=== PATIENT | female | born 1985 | race Caucasian/White ===

== ENCOUNTER 2017-05-30 17:52 | Emergency (ER) | payer OTHER ==
[~2017-05-30] VITALS: Ht 160 cm; Wt 113.4 kg
[~2017-05-30 17:52] MED LIST: ACET500 PO; ALBU90OI INH; ALBU90OI61 INH; AMOCLA875 PO; AMOX500 PO; Augmentin 875-1 EACH PO; BCPs; BENZ100A PO; BIRTH CONTROL PO; Bactroban22 GM TOP; CEPH500 PO; CIPR500 PO; CLIN300 PO; DIPATR PO; ERYT.5TO BOTHEYES; Flagyl500 MG PO; Flonase 0.05% N16 GM; GUAI120S1 PO; HYDACE5 PO; IBUP600 PO; IBUP800 PO; IRON PILLS PO; LAVAP17G PO; MULVITMINE PO; NAPR500 PO; Naprosyn500 MG PO; Norco 5-325 Ta1 EACH PO; ONDA4 PO; ONDA4ODT MM; OXYACE5T PO; PENVK500 PO; PHENA100 PO; PHENA200 PO; PROM25 PO; Peridex480 ML SS; Pyridium200 MG PO; RXTRAM50 PO; SULF10OPSA OS; SULTRIDS PO; Sudogest30 MG PO; TOBR.3OPSO OP; TRAM50 PO; Veetids 500500 MG PO; Zofran Odt4 MG SL
[2017-05-30] MEDS ORDERED: Bactrim Ds Tab1 EACH PO (18:41)
[2017-05-30] MEDS ORDERED: Mupirocin22 GM TOP (18:41)
[2017-05-30] MEDS ORDERED: CEPH500 PO (18:41)
== END 2017-05-30 19:08 | disposition home or self-care (01) ==
LOC: ER 17:52
DX: L03.115 Cellulitis of right lower limb (principal); L97.519 Non-pressure chronic ulcer of other part of right foot with unspecified severity; D64.9 Anemia, unspecified; Z79.899 Other long term (current) drug therapy; Z79.2 Long term (current) use of antibiotics; Z98.51 Tubal ligation status; Z90.89 Acquired absence of other organs
CPT/HCPCS: 82947; 99283

== ENCOUNTER 2019-04-06 17:58 | Emergency (ER) | payer SELFPAY ==
[~2019-04-06] VITALS: Ht 160 cm; Wt 113.4 kg
[~2019-04-06 17:58] MED LIST changes: +Amoxicillin500 MG PO; +Bactrim Ds Tab1 EACH PO; +Mupirocin22 GM TOP
[2019-04-06 18:39] LABS: BASOPHILS ABSOLUTE AUTO 0.01 K/mm3 (0.00-0.23); BASOPHILS PERCENT AUTO 0 % (0-2); EOSINOPHILS ABSOLUTE AUTO 0.02 K/mm3 (0.00-0.68); EOSINOPHILS PERCENT AUTO 0 % (0-6); Hematocrit 30.5 % (33.0-51.0); Hemoglobin 8.3 g/dL (11.5-16.0); IMMATURE GRAN ABSOLUTE AUTO 0.02 K/mm3 (0.00-0.10); IMMATURE GRAN PERCENT AUTO 0 % (0-1); LYMPHOCYTES ABSOLUTE AUTO 1.26 K/mm3 (0.84-5.20); LYMPHOCYTES PERCENT AUTO 19 % (21-46); MONOCYTES ABSOLUTE AUTO 0.47 K/mm3 (0.16-1.47); MONOCYTES PERCENT AUTO 7 % (4-13); Mean Corpuscular HGB 19.9 pg (26.0-34.0); Mean Corpuscular HGB Conc 27.2 g/dL (31.5-36.5); Mean Corpuscular Volume 73 fL (80-100); Mean Platelet Volume 9.4 fL (9.1-12.4); NEUTROPHILS ABSOLUTE AUTO 4.79 K/mm3 (1.96-9.15); NEUTROPHILS PERCENT AUTO 73 % (41-73); Platelet Count 343 K/mm3 (150-400); RDW Coefficient Variation 18.7 % (11.7-14.2); RDW Standard Deviation 48.7 fL (35.1-46.3); Red Blood Cell Count 4.18 M/mm3 (3.80-5.20); White Blood Cell Count 6.57 K/mm3 (4.00-11.30)
[2019-04-06 19:02] LABS: Alanine Aminotransfer (ALT/SGP 19 U/L (12-78); Albumin, Blood 3.3 g/dL (3.4-5.0); Albumin/Globulin Ratio 0.8 (0.8-1.8); Alk Phos 99 U/L (50-136); Anion Gap 4 mmol/L (6-16); Aspartate Aminotrans (AST/SGOT 17 U/L (12-37); Bilirubin, Total 0.2 mg/dL (0.1-1.0); Blood Urea Nitrogen 13 mg/dL (8-24); Bun/Creatinine Ratio 13.9 (12.0-20.0); CO2, Blood 26 mmol/L (21-32); Calcium, Blood 8.6 mg/dL (8.5-10.1); Chloride, Blood 109 mmol/L (98-108); Creatinine, Blood 0.94 mg/dL (0.40-1.00); Globulin, Blood 4.3 g/dL (2.2-4.0); Glomerular Filtration Rate >60 (60-); Glucose, Blood 95 mg/dL (70-99); Potassium, Blood 3.6 mmol/L (3.5-5.5); Sodium, Blood 139 mmol/L (136-145); Total Protein, Blood 7.6 g/dL (6.4-8.2)
== END 2019-04-07 00:46 | disposition home or self-care (01) ==
LOC: ER 17:58
PROVIDERS: Physician Assistant
DX: D50.9 Iron deficiency anemia, unspecified (principal); R07.9 Chest pain, unspecified; Z79.899 Other long term (current) drug therapy
CPT/HCPCS: 36415; 36430; 71046; 80053; 84484; 85025; 85379; 86850; 86900; 86901; 86923; 93005; 93010; 99284-25; J7030; P9016

== ENCOUNTER 2019-05-23 13:19 | Emergency (ER) | payer SELFPAY ==
[~2019-05-23] VITALS: Ht 157.5 cm; Wt 113.4 kg
[2019-05-23 15:36] LABS: Influenza A Negative (NEGATIVE); Influenza B Positive (NEGATIVE)
[2019-05-23] MEDS ORDERED: OSEL75CA PO (15:42)
== END 2019-05-23 15:54 | disposition home or self-care (01) ==
LOC: ER 13:19
PROVIDERS: Physician Assistant
DX: J10.1 Influenza due to other identified influenza virus with other respiratory manifestations (principal); D50.9 Iron deficiency anemia, unspecified
CPT/HCPCS: 87804; 99283

== ENCOUNTER 2019-08-30 13:13 | Emergency (ER) | payer SELFPAY ==
[~2019-08-30] VITALS: Ht 160 cm; Wt 113.4 kg
[~2019-08-30 13:13] MED LIST changes: +OSEL75CA PO
== END 2019-08-30 16:30 | disposition home or self-care (01) ==
LOC: ER 13:13
DX: M77.9 Enthesopathy, unspecified (principal)
CPT/HCPCS: 73630; 96374; 99283-25

== ENCOUNTER 2020-12-24 13:44 | Emergency (ER) | payer SELFPAY ==
[~2020-12-24] VITALS: Ht 157.5 cm; Wt 136.1 kg
[2020-12-24 14:51] LABS: BASOPHILS ABSOLUTE AUTO 0.03 K/mm3 (0.00-0.23); BASOPHILS PERCENT AUTO 0 % (0-2); EOSINOPHILS ABSOLUTE AUTO 0.01 K/mm3 (0.00-0.68); EOSINOPHILS PERCENT AUTO 0 % (0-6); Hematocrit 30.2 % (33.0-51.0); Hemoglobin 8.2 g/dL (11.5-16.0); IMMATURE GRAN ABSOLUTE AUTO 0.02 K/mm3 (0.00-0.10); IMMATURE GRAN PERCENT AUTO 0 % (0-1); LYMPHOCYTES ABSOLUTE AUTO 1.47 K/mm3 (0.84-5.20); LYMPHOCYTES PERCENT AUTO 14 % (21-46); MONOCYTES ABSOLUTE AUTO 0.57 K/mm3 (0.16-1.47); MONOCYTES PERCENT AUTO 5 % (4-13); Mean Corpuscular HGB 19.4 pg (26.0-34.0); Mean Corpuscular HGB Conc 27.2 g/dL (31.5-36.5); Mean Corpuscular Volume 72 fL (80-100); Mean Platelet Volume 9.4 fL (9.1-12.4); NEUTROPHILS ABSOLUTE AUTO 8.73 K/mm3 (1.96-9.15); NEUTROPHILS PERCENT AUTO 81 % (41-73); Platelet Count 387 K/mm3 (150-400); RDW Coefficient Variation 20.5 % (11.7-14.2); Red Blood Cell Count 4.22 M/mm3 (3.80-5.20); White Blood Cell Count 10.83 K/mm3 (4.00-11.30)
[2020-12-24 15:10] LABS: Alanine Aminotransfer (ALT/SGP 27 U/L (12-78); Albumin/Globulin Ratio 0.6 (0.8-1.8); Alk Phos 137 U/L (50-136); Anion Gap 5 mmol/L (6-16); Aspartate Aminotrans (AST/SGOT 21 U/L (12-37); Bilirubin, Total 0.4 mg/dL (0.1-1.0); Blood Urea Nitrogen 12 mg/dL (8-24); Bun/Creatinine Ratio 17.3 (12.0-20.0); CO2, Blood 26 mmol/L (21-32); Calcium, Blood 8.9 mg/dL (8.5-10.1); Chloride, Blood 109 mmol/L (98-108); Globulin, Blood 4.7 g/dL (2.2-4.0); Glomerular Filtration Rate >60 (60-); Glucose, Blood 108 mg/dL (70-99); Potassium, Blood 3.9 mmol/L (3.5-5.5); Sodium, Blood 140 mmol/L (136-145); Total Protein, Blood 7.7 g/dL (6.4-8.2)
== END 2020-12-24 18:17 | disposition home or self-care (01) ==
LOC: ER 13:44
PROVIDERS: Physician Assistant
DX: R42 Dizziness and giddiness (principal); D50.9 Iron deficiency anemia, unspecified; R55 Syncope and collapse
CPT/HCPCS: 0031A; 36415; 80053; 81025; 85025; 91303; 93005; 93010; 99284-25

== ENCOUNTER 2021-05-25 09:36 | Emergency (ER) | payer SELFPAY ==
[~2021-05-25] VITALS: Ht 157.5 cm; Wt 136.1 kg
[2021-05-25 11:04] LABS: Influenza A, PCR NEGATIVE (NEGATIVE); Influenza B, PCR NEGATIVE (NEGATIVE); Resp Syncytial Virus, PCR NEGATIVE (NEGATIVE); SARS-Cov-2 (COVID-19) PCR, MMC NEGATIVE (NEGATIVE)
== END 2021-05-25 11:40 | disposition home or self-care (01) ==
LOC: ER 09:36
PROVIDERS: Emergency Medicine
DX: U07.1 COVID-19 (principal); D50.9 Iron deficiency anemia, unspecified
CPT/HCPCS: 0241U; 71045; 99285-25

== ENCOUNTER 2021-08-06 09:08 | Emergency (ER) | payer SELFPAY ==
[~2021-08-06] VITALS: Ht 157.5 cm; Wt 136.1 kg
[2021-08-06] MEDS ORDERED: Bactrim Ds Tab1 EACH PO (10:17)
[2021-08-06] MEDS ORDERED: CEPH500 PO (10:17)
== END 2021-08-06 10:24 | disposition home or self-care (01) ==
LOC: ER 09:08
DX: N61.0 Mastitis without abscess (principal)
CPT/HCPCS: 96374; 99285-25

== ENCOUNTER 2023-05-20 10:44 | Emergency (ER) | payer SELFPAY ==
[~2023-05-20] VITALS: Ht 160 cm; Wt 136.1 kg
[2023-05-20 11:34] VITALS: BP 138/96
== END 2023-05-20 11:41 | disposition home or self-care (01) ==
LOC: ER 10:44
DX: U07.1 COVID-19 (principal)
CPT/HCPCS: 99282

== ENCOUNTER 2024-04-08 14:26 | Emergency (ER) | payer SELFPAY ==
[~2024-04-08] VITALS: Ht 157.5 cm; Wt 113.4 kg
[2024-04-08 14:36] VITALS: BP 152/90
[2024-04-08] MEDS ORDERED: Ketorolac Tromethamine 15mg Vial IM ONE (15:10)
== END 2024-04-08 15:29 ==
LOC: ER 14:26
DX: M25.562 Pain in left knee (principal)
CPT/HCPCS: 73560-LT; 96372; 99283-25; J1885

== ENCOUNTER 2024-07-29 14:22 | Day surgery (SDC) | payer OTHER ==
[~2024-07-29 14:22] MED LIST changes: +Sod Ferric Gluc Complx/Sucrose 125 MG in NS 100 ML IV SCH
[2024-07-29 14:50] VITALS: BP 140/76
[2024-07-29] MEDS ORDERED: TOPI25 PO (15:35)
[2024-07-29] MEDS ORDERED: LOMAIRA8 MG PO (15:36)
== END 2024-07-29 15:59 | disposition home or self-care (01) ==
LOC: ATC 14:22
DX: D50.8 Other iron deficiency anemias (principal); E66.01 Morbid (severe) obesity due to excess calories; Z68.44 Body mass index [BMI] 60.0-69.9, adult; Z80.41 Family history of malignant neoplasm of ovary; Z79.899 Other long term (current) drug therapy
CPT/HCPCS: 96365; J2916

== ENCOUNTER 2024-08-07 00:09 | Day surgery (SDC) | payer OTHER ==
[~2024-08-07 00:09] MED LIST changes: +LOMAIRA8 MG PO; -Sod Ferric Gluc Complx/Sucrose 125 MG in NS 100 ML IV SCH; +TOPI25 PO
[2024-08-07] MEDS ORDERED: Sod Ferric Gluc Complx/Sucrose 125 MG in NS 100 ML IV SCH (01:00)
[2024-08-07 15:03] VITALS: BP 134/75
== END 2024-08-07 16:05 | disposition home or self-care (01) ==
LOC: ATC 00:09
DX: D50.9 Iron deficiency anemia, unspecified (principal); F42.2 Mixed obsessional thoughts and acts; E66.01 Morbid (severe) obesity due to excess calories; Z80.41 Family history of malignant neoplasm of ovary; Z68.44 Body mass index [BMI] 60.0-69.9, adult
CPT/HCPCS: 96365; J2916

== ENCOUNTER 2024-08-14 01:33 | Day surgery (SDC) | payer OTHER ==
[~2024-08-14 01:33] MED LIST changes: +Sod Ferric Gluc Complx/Sucrose 125 MG in NS 100 ML IV SCH
[2024-08-14 15:23] VITALS: BP 126/78
== END 2024-08-14 16:25 | disposition home or self-care (01) ==
LOC: ATC 01:33
DX: D50.8 Other iron deficiency anemias (principal); Z98.51 Tubal ligation status; Z80.41 Family history of malignant neoplasm of ovary; E11.9 Type 2 diabetes mellitus without complications; E66.01 Morbid (severe) obesity due to excess calories; Z68.44 Body mass index [BMI] 60.0-69.9, adult; Z79.899 Other long term (current) drug therapy
CPT/HCPCS: 96365; J2916

== ENCOUNTER → 2024-08-16 | Outpatient (CLI) | payer OTHER ==
[~2024-08-16] MED LIST changes: -Sod Ferric Gluc Complx/Sucrose 125 MG in NS 100 ML IV SCH
[2024-08-29 13:47] LABS: HPV HIGH RISK BY TMA Not Detected; HPV SOURCE Cervical/Vag
== END ==
LOC: LAB SHORT 11:36 → LAB 11:36
PROVIDERS: Obstetrics & Gynecology
DX: Z12.4 Encounter for screening for malignant neoplasm of cervix (principal)
CPT/HCPCS: 87624; 88142

== ENCOUNTER 2024-08-21 02:00 | Day surgery (SDC) | payer OTHER ==
[2024-08-21] MEDS ORDERED: Sod Ferric Gluc Complx/Sucrose 125 MG in NS 100 ML IV SCH (06:00)
[2024-08-21 15:13] VITALS: BP 118/72
== END 2024-08-21 15:57 | disposition home or self-care (01) ==
LOC: ATC 02:00
DX: D50.8 Other iron deficiency anemias (principal); F42.2 Mixed obsessional thoughts and acts; E66.01 Morbid (severe) obesity due to excess calories; Z98.51 Tubal ligation status; Z80.41 Family history of malignant neoplasm of ovary; Z68.44 Body mass index [BMI] 60.0-69.9, adult
CPT/HCPCS: 96365; J2916

== ENCOUNTER 2024-08-29 05:06 | Day surgery (SDC) | payer OTHER ==
[~2024-08-29 05:06] MED LIST changes: +Sod Ferric Gluc Complx/Sucrose 125 MG in NS 100 ML IV SCH
[2024-08-29 14:55] VITALS: BP 128/60
== END 2024-08-29 16:05 | disposition home or self-care (01) ==
LOC: ATC 05:06
DX: D50.8 Other iron deficiency anemias (principal); R53.83 Other fatigue; F42.2 Mixed obsessional thoughts and acts; E66.01 Morbid (severe) obesity due to excess calories; Z68.44 Body mass index [BMI] 60.0-69.9, adult; Z80.41 Family history of malignant neoplasm of ovary; Z98.51 Tubal ligation status
CPT/HCPCS: 96365; J2916

== ENCOUNTER 2024-09-05 03:56 | Day surgery (SDC) | payer OTHER ==
[2024-09-05 15:11] VITALS: BP 127/56
== END 2024-09-05 16:10 | disposition home or self-care (01) ==
LOC: ATC 03:56
DX: D50.8 Other iron deficiency anemias (principal); E66.01 Morbid (severe) obesity due to excess calories; Z68.44 Body mass index [BMI] 60.0-69.9, adult; Z79.899 Other long term (current) drug therapy
CPT/HCPCS: 96365; J2916

== ENCOUNTER 2024-11-23 01:46 | Day surgery (SDC) | payer OTHER ==
[2024-11-23 15:53] VITALS: BP 130/75
== END 2024-11-23 16:56 | disposition home or self-care (01) ==
LOC: ATC 01:46
DX: D50.8 Other iron deficiency anemias (principal); E66.01 Morbid (severe) obesity due to excess calories; Z68.44 Body mass index [BMI] 60.0-69.9, adult; Z79.899 Other long term (current) drug therapy
CPT/HCPCS: 96365; J2916

== ENCOUNTER 2024-11-30 02:57 | Day surgery (SDC) | payer OTHER ==
[2024-11-30 16:06] VITALS: BP 125/85
== END 2024-11-30 17:05 | disposition home or self-care (01) ==
LOC: ATC 02:57
DX: D50.8 Other iron deficiency anemias (principal); E66.01 Morbid (severe) obesity due to excess calories; Z68.44 Body mass index [BMI] 60.0-69.9, adult; Z98.51 Tubal ligation status
CPT/HCPCS: 96365; J2916

== ENCOUNTER 2024-12-07 04:20 | Day surgery (SDC) | payer OTHER ==
[2024-12-07 15:02] VITALS: BP 111/76
== END 2024-12-07 15:56 | disposition home or self-care (01) ==
LOC: ATC 04:20
DX: D50.0 Iron deficiency anemia secondary to blood loss (chronic) (principal); Z98.51 Tubal ligation status
CPT/HCPCS: 96365; J2916

== ENCOUNTER 2024-12-14 14:08 | Day surgery (SDC) | payer OTHER ==
[2024-12-14 15:14] VITALS: BP 125/71
== END 2024-12-14 16:20 | disposition home or self-care (01) ==
LOC: ATC 14:08
DX: D50.0 Iron deficiency anemia secondary to blood loss (chronic) (principal); R53.83 Other fatigue; F42.2 Mixed obsessional thoughts and acts; E66.01 Morbid (severe) obesity due to excess calories; Z68.44 Body mass index [BMI] 60.0-69.9, adult; Z79.899 Other long term (current) drug therapy; Z98.51 Tubal ligation status
CPT/HCPCS: 96365; J2916

== ENCOUNTER 2024-12-22 00:58 | Day surgery (SDC) | payer OTHER ==
[~2024-12-22 00:58] MED LIST changes: -Sod Ferric Gluc Complx/Sucrose 125 MG in NS 100 ML IV SCH
[2024-12-22] MEDS ORDERED: Sod Ferric Gluc Complx/Sucrose 125 MG in NS 100 ML IV SCH (01:00)
[2024-12-22 14:56] VITALS: BP 110/68
== END 2024-12-22 16:00 | disposition home or self-care (01) ==
LOC: ATC 00:58
DX: D50.0 Iron deficiency anemia secondary to blood loss (chronic) (principal); E66.01 Morbid (severe) obesity due to excess calories; Z68.44 Body mass index [BMI] 60.0-69.9, adult; Z98.51 Tubal ligation status; Z80.41 Family history of malignant neoplasm of ovary
CPT/HCPCS: 96365; J2916

== ENCOUNTER 2025-01-04 03:27 | Day surgery (SDC) | payer OTHER ==
[~2025-01-04 03:27] MED LIST changes: +Sod Ferric Gluc Complx/Sucrose 125 MG in NS 100 ML IV SCH
[2025-01-04 09:55] VITALS: BP 107/67
== END 2025-01-04 11:01 | disposition home or self-care (01) ==
LOC: ATC 03:27
DX: D50.0 Iron deficiency anemia secondary to blood loss (chronic) (principal); N92.0 Excessive and frequent menstruation with regular cycle; E66.813 Obesity, class 3; Z68.42 Body mass index [BMI] 45.0-49.9, adult
CPT/HCPCS: 96365; J2916

== ENCOUNTER 2025-01-08 15:47 | Day surgery (SDC) | payer OTHER ==
[2025-01-08 15:51] VITALS: BP 115/79
== END 2025-01-08 16:52 | disposition home or self-care (01) ==
LOC: ATC 15:47
DX: D50.0 Iron deficiency anemia secondary to blood loss (chronic) (principal); N92.0 Excessive and frequent menstruation with regular cycle; E66.813 Obesity, class 3; Z68.42 Body mass index [BMI] 45.0-49.9, adult
CPT/HCPCS: 96365; J2916

== ENCOUNTER 2025-01-12 03:39 | Day surgery (SDC) | payer OTHER ==
[2025-01-12 17:04] VITALS: BP 105/67
== END 2025-01-12 18:02 | disposition short-term general hospital (02) ==
LOC: ATC 03:39
DX: D50.0 Iron deficiency anemia secondary to blood loss (chronic) (principal); N92.0 Excessive and frequent menstruation with regular cycle; E66.813 Obesity, class 3; Z68.42 Body mass index [BMI] 45.0-49.9, adult
CPT/HCPCS: 96365; J2916

== ENCOUNTER 2025-01-16 02:13 | Day surgery (SDC) | payer OTHER ==
[2025-01-16 16:11] VITALS: BP 115/71
== END 2025-01-16 17:10 | disposition home or self-care (01) ==
LOC: ATC 02:13
DX: D50.0 Iron deficiency anemia secondary to blood loss (chronic) (principal); N92.0 Excessive and frequent menstruation with regular cycle; E66.813 Obesity, class 3; Z68.42 Body mass index [BMI] 45.0-49.9, adult
CPT/HCPCS: 96365; J2916

== ENCOUNTER 2025-01-19 09:34 | Day surgery (SDC) | payer OTHER ==
[2025-01-19 13:51] VITALS: BP 125/70
== END 2025-01-19 14:54 | disposition home or self-care (01) ==
LOC: ATC 09:34
DX: D50.0 Iron deficiency anemia secondary to blood loss (chronic) (principal); E66.813 Obesity, class 3; Z68.41 Body mass index [BMI] 40.0-44.9, adult; Z79.899 Other long term (current) drug therapy
CPT/HCPCS: 96365; J2916

== ENCOUNTER → 2025-04-18 | Outpatient (CLI) | payer OTHER ==
[~2025-04-18] MED LIST changes: -Sod Ferric Gluc Complx/Sucrose 125 MG in NS 100 ML IV SCH
[2025-04-18 14:39] LABS: BASOPHILS ABSOLUTE AUTO 0.01 K/mm3 (0.00-0.23); BASOPHILS PERCENT AUTO 0 % (0-2); EOSINOPHILS ABSOLUTE AUTO 0.01 K/mm3 (0.00-0.68); EOSINOPHILS PERCENT AUTO 0 % (0-6); Hematocrit 35.5 % (33.0-51.0); Hemoglobin 11.5 g/dL (11.5-16.0); IMMATURE GRAN ABSOLUTE AUTO 0.01 K/mm3 (0.00-0.10); IMMATURE GRAN PERCENT AUTO 0 % (0-1); LYMPHOCYTES ABSOLUTE AUTO 1.27 K/mm3 (0.84-5.20); LYMPHOCYTES PERCENT AUTO 25 % (21-46); MONOCYTES ABSOLUTE AUTO 0.27 K/mm3 (0.16-1.47); MONOCYTES PERCENT AUTO 5 % (4-13); Mean Corpuscular HGB Conc 32.4 g/dL (31.5-36.5); Mean Corpuscular Volume 93 fL (80-100); NEUTROPHILS ABSOLUTE AUTO 3.47 K/mm3 (1.96-9.15); NEUTROPHILS PERCENT AUTO 69 % (41-73); NRBC ABSOLUTE 0.00 K/mm3 (0.00-0.02); NRBC Auto 0.0 /100 WBC (0.0-0.2); Platelet Count 217 K/mm3 (150-400); RDW Coefficient Variation 14.9 % (11.7-14.2); RDW Standard Deviation 51.0 fL (35.1-46.3)
[2025-04-18 16:20] LABS: Ferritin, Serum 56.0 ng/mL (8-252); Total Iron Binding Capacity 251.0 ug/dL (250-450)
== END ==
LOC: LAB 12:56 → LAB SHORT 12:56
PROVIDERS: Internal Medicine Hematology & Oncology
DX: E61.1 Iron deficiency (principal)
CPT/HCPCS: 82728; 83540; 83550; 85025